=== PATIENT | male | born 1950 | race Caucasian/White ===

== ENCOUNTER 2017-08-28 09:10 | Emergency (ER) | payer MEDICARE ==
[2017-08-28] MEDS ORDERED: cloNIDine HCL 0.1 MG TAB PO STA (09:36)
[2017-08-28] MEDS ORDERED: SODIUM CHLORIDE 0.9% 1,000 ML IV STA (10:00)
[2017-08-28] MEDS ORDERED: diphenhydrAMINE 50 MG/ML 1 ML VIAL IVP STA (10:00)
[2017-08-28] MEDS ORDERED: FAMOTIDINE 20 MG/2 ML VIAL IV STA (10:01)
[2017-08-28 10:39] LABS: Basophils % (A) 0 %; Eosinophils # (A) 0.1 k/uL (0-0.7); Eosinophils % (A) 0 %; HCT 51.5 % (39.0-53.0); HGB 17.2 gm/dL (13.0-17.5); Lymphocytes # (A) 1.1 k/uL (1.0-4.8); Lymphocytes % (A) 7 %; MCH 31.5 pg (25.0-35.0); MCHC 33.4 g/dL (31.0-37.0); MCV 94.1 fL (80.0-100.0); Mean Platelet Volume 6.2; Monocytes # (A) 0.6 k/uL (0-1.0); Monocytes % (A) 4 %; Neutrophils # (A) 14.8 k/uL (1.3-7.7); Neutrophils % (A) 89 %; Platelet Count 367 k/uL (150-450); RBC 5.47 m/uL (4.30-5.90); WBC 16.7 k/uL (3.8-10.6)
--- NOTE | 2017-08-28 10:48 | XR ---
Abdomen HISTORY: Pain Frontal view of the abdomen on 2 images Lung bases are clear. There is no evident pneumoperitoneum or bowel obstruction. Bone mineralization is normal. No evident pathologic calcification, vascular calcifications are noted. IMPRESSION: Nonobstructive bowel gas pattern.
[2017-08-28 10:49] LABS: ALT 30 U/L (21-72); AST 22 U/L (17-59); Albumin 4.8 g/dL (3.5-5.0); Alkaline Phosphatase 79 U/L (38-126); Amylase 44 U/L (30-110); Anion Gap 14 mmol/L; Blood Urea Nitrogen 18 mg/dL (9-20); Calcium 10.4 mg/dL (8.4-10.2); Carbon Dioxide 23 mmol/L (22-30); Chloride 103 mmol/L (98-107); Glucose 114 mg/dL (74-99); Lipase 80 U/L (23-300); Potassium 4.9 mmol/L (3.5-5.1); Sodium 140 mmol/L (137-145); Total Bilirubin 0.8 mg/dL (0.2-1.3); Total Protein 8.6 g/dL (6.3-8.2)
--- NOTE | 2017-08-28 10:49 | ED ---
Skin/Abscess/FB HPI - General Chief complaint: Skin/Abscess/Foreign Body Stated complaint: Hives Time Seen by Provider: 08/28/17 09:36 Source: patient, RN notes reviewed, old records reviewed Mode of arrival: ambulatory Limitations: no limitations - History of Present Illness Initial comments: This patient's a 67-year-old male presents emergency room with a chief complaint of hives. He reports that on Tuesday morning he started to have the signs went to speak to be received IM Solu-Medrol and steroid pack. He reports that today he is having some lower abdominal pain, as well as concerned because his hives are reoccurring. Patient reports that he has no back pain. He states he has not taken any Pepcid or Benadryl. He denies having a bowel movement today. No fevers or chills. Normal urination. Patient reports he did not take his blood pressure medications this morning. - Related Data Home Medications Medication Instructions Recorded Confirmed Nebivolol HCl [Bystolic] 10 mg PO DAILY 09/14/15 09/14/15 Simvastatin [Zocor] 5 mg PO HS 09/14/15 09/14/15 Previous Rx's Medication Instructions Recorded Diazepam [Valium] 5 mg PO BID PRN #16 tab 09/15/15 Meclizine [Antivert] 25 mg PO TID PRN #16 tab 09/15/15 Ondansetron Odt [Zofran ODT] 4 mg PO Q8HR PRN #10 tab 09/15/15 Famotidine [Pepcid] 20 mg PO BID #10 tablet 08/28/17 diphenhydrAMINE [Benadryl] 25 mg PO TID PRN #20 capsule 08/28/17 predniSONE 20 mg PO BID #6 tab 08/28/17 Allergies Allergy/AdvReac Type Severity Reaction Status Date / Time No Known Allergies Allergy Verified 08/28/17 09:15 Review of Systems ROS Statement: Those systems with pertinent positive or pertinent negative responses have been documented in the HPI. ROS Other: All systems not noted in ROS Statement are negative. Past Medical History Past Medical History: Hypertension History of Any Multi-Drug Resistant Organisms: None Reported Past Surgical History: Appendectomy, Tonsillectomy Past Psychological History: No Psychological Hx Reported Smoking Status: Never smoker Past Alcohol Use History: Occasional Past Drug Use History: None Reported General Exam - General Exam Comments Initial Comments: 67-year-old male. Alert and oriented. No acute distress. Limitations: no limitations General appearance: alert, in no apparent distress Head exam: Present: atraumatic, normocephalic, normal inspection Eye exam: Present: normal appearance, PERRL, EOMI. Absent: scleral icterus, conjunctival injection, periorbital swelling ENT exam: Present: normal exam, mucous membranes moist Neck exam: Present: normal inspection. Absent: tenderness, meningismus, lymphadenopathy Respiratory exam: Present: normal lung sounds bilaterally. Absent: respiratory distress, wheezes, rales, rhonchi, stridor Cardiovascular Exam: Present: regular rate, normal rhythm, normal heart sounds. Absent: systolic murmur, diastolic murmur, rubs, gallop, clicks GI/Abdominal exam: Present: soft, normal bowel sounds, other (No bruits or pulsatile masses. Abdomen is nontender.). Absent: distended, tenderness, guarding, rebound, rigid Back exam: Present: normal inspection Neurological exam: Present: alert, oriented X3, CN II-XII intact Psychiatric exam: Present: normal affect, normal mood Skin exam: Present: warm, dry, intact, normal color, rash (Patient has evidence of hives over her right arm and back. ) Course Vital Signs 08/28/17 08/28/17 09:13 11:52 Temperature 97.7 F 98.2 F Pulse Rate 87 78 Respiratory 20 18 Rate Blood Pressure 203/101 160/92 O2 Sat by Pulse 98 96 Oximetry Medical Decision Making - Medical Decision Making 67-year-old male presents emergency department today for evaluation for hives. He also mentions that he's been having some minor lower abdominal pain. He seems to report that it feels somewhat better after taking Pepcid IV. Patient' s lab work did show elevated white blood cell count. However he has been on steroids for the past week. Patient reports he has no idea what could've been causing his ALLERGIC reaction at this time. He did arrive with an elevated blood pressure but he did not take his blood pressure medication today. Abdomen is soft nontender. Denies any back pain. No tenderness on exam. Patient at this time will be discharged with pepcid, benadryl, and higher dose of steriods. Discussed PCP follow up. Patient agrees to treatment plan and will comply. - Lab Data Result diagrams: 08/28/17 10:21 08/28/17 10:20 Lab Results 08/28/17 08/28/17 08/28/17 Range/Units 10:20 10:21 10:45 WBC 16.7 H (3.8-10.6) k/uL RBC 5.47 (4.30-5.90) m/uL Hgb 17.2 (13.0-17.5) gm/dL Hct 51.5 (39.0-53.0) % MCV 94.1 (80.0-100.0) fL MCH 31.5 (25.0-35.0) pg MCHC 33.4 (31.0-37.0) g/dL RDW 13.0 (11.5-15.5) % Plt Count 367 (150-450) k/uL Neutrophils % 89 % Lymphocytes % 7 % Monocytes % 4 % Eosinophils % 0 % Basophils % 0 % Neutrophils # 14.8 H (1.3-7.7) k/uL Lymphocytes # 1.1 (1.0-4.8) k/uL Monocytes # 0.6 (0-1.0) k/uL Eosinophils # 0.1 (0-0.7) k/uL Basophils # 0.0 (0-0.2) k/uL Sodium 140 (137-145) mmol/L Potassium 4.9 (3.5-5.1) mmol/L Chloride 103 (98-107) mmol/L Carbon Dioxide 23 (22-30) mmol/L Anion Gap 14 mmol/L BUN 18 (9-20) mg/dL Creatinine 0.94 (0.66-1.25) mg/dL Est GFR (CKD-EPI)AfAm >90 (>60 ml/min/1.73 sqM) Est GFR (CKD-EPI)NonAf 83 (>60 ml/min/1.73 sqM) Glucose 114 H (74-99) mg/dL Calcium 10.4 H (8.4-10.2) mg/dL Total Bilirubin 0.8 (0.2-1.3) mg/dL AST 22 (17-59) U/L ALT 30 (21-72) U/L Alkaline Phosphatase 79 (38-126) U/L Total Protein 8.6 H (6.3-8.2) g/dL Albumin 4.8 (3.5-5.0) g/dL Amylase 44 (30-110) U/L Lipase 80 (23-300) U/L Urine Color Yellow Urine Appearance Clear (Clear) Urine pH 6.0 (5.0-8.0) Ur Specific [place] 1.015 (1.001-1.035) Urine Protein Negative (Negative) Urine Glucose (UA) Negative (Negative) Urine Ketones Negative (Negative) Urine Blood Trace H (Negative) Urine Nitrite Negative (Negative) Urine Bilirubin Negative (Negative) Urine Urobilinogen <2.0 (<2.0) mg/dL Ur Leukocyte Esterase Negative (Negative) Urine RBC 2 (0-5) /hpf Urine WBC <1 (0-5) /hpf Urine Mucus Rare H (None) /hpf - Radiology Data Radiology results: report reviewed Non obstructive bowel gas pattern. Disposition Clinical Impression: Hives Disposition: HOME SELF-CARE Condition: Good Instructions: Urticaria (ED) Additional Instructions: Patient should return to emergency department if any alarming signs or symptoms occur. Take the new steroids as directed for the next few days. Follow-up with primary care provider in the next 1-2 days. Prescriptions: diphenhydrAMINE [Benadryl] 25 mg PO TID PRN #20 capsule PRN Reason: Itching Famotidine [Pepcid] 20 mg PO BID #10 tablet predniSONE 20 mg PO BID #6 tab Is patient prescribed a controlled substance at d/c from ED?: No When asked, does pt state using other controlled substances?: No If prescribed controlled substance>3 days was MAPS reviewed?: No If opioid is for acute pain is fill amount 7 days or less?: No If Rx opioid, was Start Talking consent form obtained?: No Referrals: Marc Salazar MD [Primary Care Provider] - 1-2 days Time of Disposition: 11:54
[2017-08-28 11:20] LABS: Appearance,Urine Clear (Clear); Bilirubin,Urine Negative (Negative); Blood,Urine Trace (Negative); Color,Urine Yellow; Glucose,Urine (UA) Negative (Negative); Ketones,Urine Negative (Negative); Leukocyte Esterase,Urine Negative (Negative); Mucus,Urine Rare /hpf; Nitrite,Urine Negative (Negative); Protein,Urine Negative (Negative); RBC,Urine 2 /hpf (0-5); Specific Gravity,Urine 1.015 (1.001-1.035); Urobilinogen,Urine <2.0 mg/dL (<2.0); WBC,Urine <1 /hpf (0-5)
[2017-08-28 11:52] VITALS: BP 160/92; PULSE 78; RESP 18; TEMP 98.2
== END 2017-08-28 12:17 | disposition home or self-care (01) ==
LOC: EC 09:10
DX: L50.9 Urticaria, unspecified (principal); D72.829 Elevated white blood cell count, unspecified; I10 Essential (primary) hypertension; R10.30 Lower abdominal pain, unspecified; Z79.899 Other long term (current) drug therapy; Z90.49 Acquired absence of other specified parts of digestive tract
CPT/HCPCS: 36415; 80053; 82150; 83690; 85025; 81001; 74018; 99284; 96374; 96375; 96361; J1200